=== PATIENT | female | born 1995 | race Hispanic/Latino ===

== ENCOUNTER 2022-06-26 08:29 | Day surgery (SDC) | payer SELFPAY ==
[2022-06-26 09:40] VITALS: BMI 36.6
[2022-06-26] MEDS ORDERED: hydrALAZINE 20 MG/ML VIAL SLOW IVP PRN (10:10)
[2022-06-26 11:19] LABS: #Basophils 0.1 10x3/uL (0.0-0.2); #Eosinphils 0.2 10x3/uL (0.0-0.5); #Monocytes 0.5 10x3/uL (0.0-1.1); #Neutrophils 7.3 10x3/uL (1.5-8.4); %Basophils 0.5 % (0.0-2.0); %Eosinophils 2.5 % (0.0-6.0); %Lymphocytes 12.6 % (18.0-47.0); %Monocytes 5.3 % (0.0-10.0); %Neutrophils 78.9 % (40.0-75.0); Mean Corpuscular Hemoglobin 23.9 pg (27.0-33.0); Mean Corpuscular Volume 72.5 fl (81.6-98.3); Platelet Count 263 10x3/uL (150-450); RBC Distribution Width 16.2 % (11.5-14.5); Red Blood Cell (RBC) Count 4.18 10x6/uL (3.90-5.03); White Blood Cell (WBC) Count 9.2 10x3/uL (3.5-10.5)
[2022-06-26 11:40] LABS: ALT (SGPT) 13 U/L (8-55); AST (SGOT) 18 U/L (5-34); Alkaline Phosphatase 153 U/L (40-110); Anion Gap 11 mmol/L (10-20); BUN (Urea Nitrogen) Less than 4 mg/dL (7.0-18.7); Bilirubin, Total 0.5 mg/dL (0.2-1.2); Calc. Creatinine Clearance 243 mL/min (70-130); Calcium 8.6 mg/dL (7.8-10.44); Carbon Dioxide 19 mmol/L (22-29); Chloride 106 mmol/L (98-107); Estimated GFR 131; Globulin 3.6 g/dL (2.4-3.5); Glucose 75 mg/dL (70-105); Potassium 3.7 mmol/L (3.5-5.1); Protein, Total 6.6 g/dL (6.0-8.3); Sodium 132 mmol/L (136-145)
== END 2022-06-26 12:10 | disposition home or self-care (01) ==
LOC: CSHLD/OP 08:29
PROVIDERS: ATTEND Family Medicine
DX: O47.03 False labor before 37 completed weeks of gestation, third trimester (principal); O21.2 Late vomiting of pregnancy; Z3A.37 37 weeks gestation of pregnancy
CPT/HCPCS: 36415; 80053; 85025; 99283

== ENCOUNTER 2022-06-27 19:07 | Day surgery (SDC) | payer SELFPAY | END 2022-06-27 20:30 | disposition home or self-care (01) | LOC: CSHLD/OP 19:07 | PROVIDERS: ATTEND Obstetrics & Gynecology | DX: O47.1 False labor at or after 37 completed weeks of gestation (principal); O16.3 Unspecified maternal hypertension, third trimester; Z3A.37 37 weeks gestation of pregnancy | CPT/HCPCS: 99283 ==

== ENCOUNTER 2022-07-04 19:13 | Inpatient (IN) | payer MEDICAID, SELFPAY ==
[~2022-07-04 19:13] MED LIST: Bupivacaine 0.25% HCL 30 ML VIAL ONE
[2022-07-04 20:12] VITALS: BMI 51.2
[2022-07-04 21:15] LABS: #Basophils 0.1 10x3/uL (0.0-0.2); #Eosinphils 0.3 10x3/uL (0.0-0.5); #Monocytes 0.4 10x3/uL (0.0-1.1); %Eosinophils 3.7 % (0.0-6.0); %Lymphocytes 29.6 % (18.0-47.0); %Monocytes 6.5 % (0.0-10.0); %Neutrophils 58.9 % (40.0-75.0); Hemoglobin 10.1 g/dL (12.0-15.5); Mean Corpuscular HGB CONC 32.1 g/dL (32.0-36.0); Mean Corpuscular Hemoglobin 23.4 pg (27.0-33.0); Mean Corpuscular Volume 72.9 fl (81.6-98.3); Mean Platelet Volume 10.4 fl (7.4-10.4); Platelet Count 320 10x3/uL (150-450); RBC Distribution Width 16.4 % (11.5-14.5); Red Blood Cell (RBC) Count 4.32 10x6/uL (3.90-5.03); White Blood Cell (WBC) Count 6.8 10x3/uL (3.5-10.5)
[2022-07-04 21:28] LABS: ALT (SGPT) 13 U/L (8-55); AST (SGOT) 20 U/L (5-34); Albumin 3.2 g/dL (3.5-5.0); Alkaline Phosphatase 159 U/L (40-110); Anion Gap 11 mmol/L (10-20); BUN (Urea Nitrogen) 5 mg/dL (7.0-18.7); Bilirubin, Total 0.4 mg/dL (0.2-1.2); Calc. Creatinine Clearance 282 mL/min (70-130); Calcium 9.2 mg/dL (7.8-10.44); Carbon Dioxide 22 mmol/L (22-29); Chloride 105 mmol/L (98-107); Estimated GFR 125; Globulin 3.7 g/dL (2.4-3.5); Glucose 89 mg/dL (70-105); Potassium 3.9 mmol/L (3.5-5.1); Protein, Total 6.9 g/dL (6.0-8.3); Sodium 134 mmol/L (136-145)
[2022-07-04] MEDS ORDERED: hydrALAZINE 20 MG/ML VIAL SLOW IVP PRN (22:18)
[2022-07-04] MEDS ORDERED: Lidocaine 1% (PF) 30 ML VIAL SC PRN (22:18)
[2022-07-04] MEDS ORDERED: Promethazine HCl 25 MG/ML VIAL IM PRN (22:18)
[2022-07-04] MEDS ORDERED: Ondansetron PF 4 MG/2 ML Vial IVP PRN (22:18)
[2022-07-04] MEDS ORDERED: Carboprost 250 MCG/ML AMP IM PRN (22:19)
[2022-07-04] MEDS ORDERED: Acetaminophen 500 MG TAB PO PRN (22:19)
[2022-07-04] MEDS ORDERED: Ibuprofen 800 MG TAB PO PRN (22:19)
[2022-07-04] MEDS ORDERED: Methylergonovine 0.2 MG/ML VIAL IM PRN (22:19)
[2022-07-04] MEDS ORDERED: Misoprostol 200 MCG TAB PR PRN (22:19)
[2022-07-04 22:20] LABS: Creatinine, Urine 85.15 mg/dL (47-110); Protein, Urine Random Quant Less than 10 mg/dL (1-14)
[2022-07-04] MEDS ORDERED: NS w/ Oxytocin 30 units 500 ML IV SCH ×2 (22:30)
[2022-07-04] MEDS ORDERED: Lactated Ringer's 1,000 ML IV SCH (22:30)
[2022-07-05] MEDS: Misoprostol 100 MCG TAB VAG SCH ×4 (00:45→13:21)
[2022-07-05 01:32] LABS: Syphilis Antibody Nonreactive (Nonreactive); Syphilis Antibody Index 0.05 S/CO (<1.00 Non-Reactive)
[2022-07-05 01:34] LABS: HBSAg Index 0.18 S/CO (0-0.99); Hep B Surf Ag Non-Reactive S/CO (NonReactive)
[2022-07-05 07:33] LABS: SARS-CoV-2 NAA Rapid Test Not Detected (NotDetected)
[2022-07-05] MEDS ORDERED: Fentanyl 2 mcg/Bup 0.1% Cadd 100 ML ONE (09:48)
[2022-07-05] MEDS ORDERED: Misoprostol 200 MCG TAB ONE (11:00)
[2022-07-05] MEDS ORDERED: Lidocaine 1% (PF) 30 ML VIAL ONE (11:06)
[2022-07-05] MEDS ORDERED: Lanolin Ointment 7 GM TUBE TOP PRN (13:15)
[2022-07-05] MEDS ORDERED: Benzocaine-Menthol 82.5 ML CAN TOP PRN (13:15)
[2022-07-05] MEDS ORDERED: hydrALAZINE 20 MG/ML VIAL SLOW IVP PRN (13:15)
[2022-07-05] MEDS ORDERED: Misoprostol 200 MCG TAB VAG PRN (13:15)
[2022-07-05] MEDS ORDERED: Bisacodyl 10 MG SUPP PR PRN (13:15)
[2022-07-05] MEDS ORDERED: Boostrix 0.5 ML (Tdap) VIAL (>/=7 yrs of age) IM ONE (13:15)
[2022-07-05] MEDS ORDERED: Preparation H Ointment 28 GM TUBE PR PRN (13:15)
[2022-07-05] MEDS ORDERED: Milk Of Magnesia 30 ML UDCUP PO PRN (13:15)
[2022-07-05] MEDS ORDERED: diphenhydrAMINE 25 MG CAP PO PRN (13:15)
[2022-07-05] MEDS: Ibuprofen 800 MG TAB PO SCH ×2 (14:18→21:26)
[2022-07-05] MEDS: Docusate 100 MG CAP PO SCH (21:26)
[2022-07-06] MEDS: Ibuprofen 800 MG TAB PO SCH ×3 (06:22→23:01)
[2022-07-06] MEDS: Docusate 100 MG CAP PO SCH ×2 (10:31→23:01)
[2022-07-06] MEDS: Prenatal Vitamin 1 TAB PO SCH (10:31)
[2022-07-07] MEDS: Ibuprofen 800 MG TAB PO SCH (06:20)
[2022-07-07 07:51] VITALS: BP 130/67; TEMP 98.6
[2022-07-07] MEDS: Docusate 100 MG CAP PO SCH (09:28)
[2022-07-07] MEDS: Prenatal Vitamin 1 TAB PO SCH (09:28)
== END 2022-07-07 14:52 | disposition home or self-care (01) | DRG 807 ==
LOC: CSHLD/OP 19:13 → CSHLD 22:15 → CSHPED 07-05 13:10
PROVIDERS: ADMIT Emergency Medicine; ATTEND Emergency Medicine
PROC: 3E0P7VZ Introduction of Hormone into Female Reproductive, Via Natural or Artificial Opening (ICD-10-PCS; 2022-07-04)
PROC: 10E0XZZ Delivery of Products of Conception, External Approach (ICD-10-PCS; principal; 2022-07-05)
PROC: 0KQM0ZZ Repair Perineum Muscle, Open Approach (ICD-10-PCS; 2022-07-05)
DX: O13.4 Gestational [pregnancy-induced] hypertension without significant proteinuria, complicating childbirth (principal); Z37.0 Single live birth; O24.420 Gestational diabetes mellitus in childbirth, diet controlled; Z3A.38 38 weeks gestation of pregnancy; Z20.822 Contact with and (suspected) exposure to COVID-19; E03.9 Hypothyroidism, unspecified; O99.284 Endocrine, nutritional and metabolic diseases complicating childbirth; Z79.82 Long term (current) use of aspirin; E66.9 Obesity, unspecified; O99.214 Obesity complicating childbirth; O70.1 Second degree perineal laceration during delivery; O69.81X0 Labor and delivery complicated by cord around neck, without compression, not applicable or unspecified; M54.9 Dorsalgia, unspecified; O99.893 Other specified diseases and conditions complicating puerperium
CPT/HCPCS: 36415; 36416; 80053; 82570; 84156; 85025; 86780; 86850; 86900; 86901; 87340; 87491; 87591; 99285; S0020; U0002